=== PATIENT | female | born 1985 | race Two or more races ===

== ENCOUNTER → 2024-07-09 | Outpatient (BNVA) | payer MEDICAID, SELFPAY | END | disposition home or self-care (01) | PROVIDERS: PCP Nurse Practitioner Family; Referring Provider Nurse Practitioner Family; Visit Provider Nurse Practitioner Family | DX: N39.0 Urinary tract infection, site not specified (principal); N76.0 Acute vaginitis; Z23 Encounter for immunization | CPT/HCPCS: 81001; 90471; 90686; 99215 ==

== ENCOUNTER → 2024-07-17 | Outpatient (BNVA) | payer MEDICAID, SELFPAY | END | disposition home or self-care (01) | PROVIDERS: PCP Nurse Practitioner Family; Referring Provider Nurse Practitioner Family; Visit Provider Nurse Practitioner Family | DX: Z71.2 Person consulting for explanation of examination or test findings (principal); E78.49 Other hyperlipidemia; B37.31 Acute candidiasis of vulva and vagina; J02.0 Streptococcal pharyngitis; N39.0 Urinary tract infection, site not specified; E55.9 Vitamin D deficiency, unspecified | CPT/HCPCS: 81001; 99213 ==